=== PATIENT | female | born 1965 | race Caucasian/White ===

== ENCOUNTER 2017-05-08 14:08 | Emergency (ER) | payer BC, OTHER ==
[~2017-05-08] VITALS: Ht 172.7 cm; Wt 93.0 kg
[2017-05-08 14:10] VITALS: BP 155/92
[2017-05-08] MEDS ORDERED: SILVER SULF. CRM 1% , 25GM TP ONE (15:30)
== END 2017-05-08 15:58 | disposition home or self-care (01) ==
LOC: ED 15:52
DX: L03.114 Cellulitis of left upper limb (principal); E78.5 Hyperlipidemia, unspecified; M71.122 Other infective bursitis, left elbow; Z90.49 Acquired absence of other specified parts of digestive tract
CPT/HCPCS: 99283